=== PATIENT | male | born 1990 | race Two or more races ===

== ENCOUNTER 2021-03-03 09:33 | Emergency (ER) | payer BC, MEDICAID ==
[~2021-03-03] VITALS: Ht 167.6 cm; Wt 68.0 kg
[2021-03-03 10:10] VITALS: BP 113/76
== END 2021-03-03 10:37 | disposition home or self-care (01) ==
LOC: ER 09:33
DX: S16.1XXA Strain of muscle, fascia and tendon at neck level, initial encounter (principal); S00.83XA Contusion of other part of head, initial encounter; V43.52XA Car driver injured in collision with other type car in traffic accident, initial encounter; Y93.89 Activity, other specified; Y92.89 Other specified places as the place of occurrence of the external cause; Y99.8 Other external cause status